=== PATIENT | female | born 1980 | race Caucasian/White ===

== ENCOUNTER 2022-09-16 05:34 | Outpatient (CLI) | payer BC ==
[~2022-09-16] VITALS: Ht 177.8 cm; Wt 104.5 kg
[2022-09-16] MEDS ORDERED: DOCU-26 PO (12:53)
[2022-09-16] MEDS ORDERED: PANT40GR PO (12:53)
== END 2022-09-16 13:16 ==
LOC: PREOP 05:34
PROVIDERS: ATTEND Otolaryngology Otolaryngology/Facial Plastic Surgery
DX: Z01.818 Encounter for other preprocedural examination (principal)

== ENCOUNTER 2022-09-23 09:02 | Day surgery (SDC) | payer BC ==
[~2022-09-23] VITALS: Ht 177.8 cm; Wt 104.5 kg
[2022-09-23] VITALS (10 sets, daily range): BP systolic 125–145; BP diastolic 66–92
[~2022-09-23 09:02] MED LIST: DOCU-26 PO; PANT40GR PO
[2022-09-23] MEDS ORDERED: LACTATED RINGERS 1,000 ML IV PRN (09:15)
[2022-09-23] MEDS ORDERED: PHENYLEPHRINE 0.5% NASAL SPR (NEO-SYNEPHRINE) REG ONE (11:14)
[2022-09-23] MEDS ORDERED: LIDOCAINE 1% w/EPI 1:100,000 20 ML VIAL ONE (11:14)
[2022-09-23] MEDS ORDERED: COCAINE 4% TOPICAL SOLN 2 ML SYR ONE (11:14)
[2022-09-23] MEDS ORDERED: fentaNYL INJECTION 100 MCG/2 ML VIAL ONE (11:38)
[2022-09-23] MEDS ORDERED: MIDAZOLAM 2 MG/2 ML (VERSED) VIAL ONE (11:39)
--- NOTE | 2022-09-23 11:53 | Progress Note-Pre Operative ---
Pre-Operative Progress Note Date of Available H&P: Sep 23, 2022 Date H&P Reviewed: Sep 23, 2022 Time H&P Reviewed: 11:30 History & Physical: H&P Reviewed, Patient Examed, No changes noted Changes from last HP none Pre-Operative Diagnosis: Deviated Nasal Septum, Bialt Hyper of INf Turbs iwth nasal congestion EDIN GANDHI MD Sep 23, 2022 11:53
--- NOTE | 2022-09-23 11:54 | Progress Note-Post Operative ---
Post-Operative Progess Note Surgeon (s)/Supervisor Chemical (s) Surgeon EDIN GANDHI MD Supervisor Chemical n/a Pre-Operative Diagnosis Deviated Nasal Septum, Bialt Hyper of INf Turbs iwth nasal congestion Post-Operative Diagnosis same Post-Op Procedure Note Date of Procedure: Sep 23, 2022 Name of Procedure Performed: Nasal Septoplasty, Bialteral Partial Reduction of the Inferior Turbinates Description & Findings Description and Findings: n/a Anesthesia Type get Estimated Blood Loss minimal Packing none. Specimen(s) collected/removed nasal septum EDIN GANDHI MD Sep 23, 2022 11:54
[2022-09-23] MEDS ORDERED: D5 1/2NS + KCL 20 MEQ/L 1000ML 1,000 ML IV SCH (12:00)
[2022-09-23] MEDS ORDERED: PROMETHAZINE INJ 25 MG/ML (PHENERGAN) AMP IVP PRN (12:00)
[2022-09-23] MEDS ORDERED: HYDROcodone/ACETAMINOPHEN 5 MG/325 MG TABLET PO PRN (12:00)
[2022-09-23] MEDS ORDERED: ONDANSETRON 4 MG/2 ML (SDV) Z0FRAN ONE (12:40)
[2022-09-23] MEDS ORDERED: proPOfol 200 MG/20 ML (DIPRIVAN) VIAL IV ONE (12:40)
[2022-09-23] MEDS ORDERED: LIDOCAINE PF 2% 5 ML VIAL ONE (12:40)
[2022-09-23] MEDS ORDERED: dexAMETHasone INJ 10 MG/ML 1 ML VIAL ONE (12:40)
[2022-09-23] MEDS ORDERED: ROCURONIUM 50 MG/5 ML (ZEMURON) VIAL IV ONE (12:40)
[2022-09-23] MEDS ORDERED: SEVOFLURANE (ULTANE) 15 ML INHAL SOLN ONE (12:41)
[2022-09-23] MEDS ORDERED: NEOSTIGMINE (BLOXIVERZ ) 1 MG/1ML 10 ML VIAL ONE (12:45)
[2022-09-23] MEDS ORDERED: GLYCOPYRROLATE INJ 0.2 MG/ML 2 ML VIAL ONE (12:45)
--- NOTE | 2022-09-23 13:09 | Anesthesia-General Post-Op ---
General Patient Condition Mental Status/LOC: Same as Preop Cardiovascular: Satisfactory Nausea/Vomiting: Absent Respiratory: Satisfactory Pain: Controlled Complications: Absent Post Op Complications Complications None Follow Up Care/Instructions Patient Instructions None needed. Anesthesia/Patient Condition Patient Condition Patient is doing well, no complaints, stable vital signs, no apparent adverse anesthesia problems. No complications reported per nursing. NIKOLAS MALONEY CRNA Sep 23, 2022 13:09
[2022-09-23] MEDS ORDERED: morphine INJ 10 MG/ML 1ML (SYR OR VIAL) IVP ONE (13:15)
[2022-09-23] MEDS ORDERED: ONDANSETRON 4 MG/2 ML (SDV) Z0FRAN IVP PRN (13:15)
[2022-09-23] MEDS ORDERED: fentaNYL INJECTION 100 MCG/2 ML VIAL IVP ONE (13:15)
[2022-09-23] MEDS ORDERED: AMOX-355 PO (14:03)
[2022-09-23] MEDS ORDERED: ACHD5005 PO (14:03)
== END 2022-09-23 14:55 | disposition home or self-care (01) ==
LOC: SDC 09:02
PROVIDERS: ATTEND Otolaryngology Otolaryngology/Facial Plastic Surgery
DX: J34.2 Deviated nasal septum (principal); J34.89 Other specified disorders of nose and nasal sinuses; J34.3 Hypertrophy of nasal turbinates; E66.9 Obesity, unspecified; Z68.33 Body mass index [BMI] 33.0-33.9, adult
CPT/HCPCS: 84703; 87081